=== PATIENT | female | born 1970 | race Caucasian/White ===

== ENCOUNTER 2022-04-06 20:36 | Emergency (ER) | payer BC, SELFPAY ==
--- NOTE | ~2022-04-06 | US_ITS ---
EXAMINATION: US VENOUS ULTRASOUND WITH DOPPLER LOWER EXTREMITY, RIGHT CLINICAL INFORMATION: Right thigh pain and swelling COMPARISON: None TECHNIQUE: Ultrasound of the deep veins is performed from the hip to the calf with compression sonography and color and pulse Doppler assessment. Spectral analysis with color-flow imaging is performed. FINDINGS: There is normal venous compression and respiratory variation and augmented flow. The visualized common femoral vein, superficial femoral vein, profunda femoral vein, popliteal vein, and the trifurcation region shows no evidence of deep venous thrombosis. There is no significant popliteal fossa cyst. Contralateral left common femoral vein appears normal. If the patient's symptoms persist, followup ultrasound in 5 days 7 days might be of value to exclude proximal propagation from a non-visualized calf vein. US/US venous duplex LE RT IMPRESSION: No DVT demonstrated in the right lower extremity.
--- NOTE | ~2022-04-06 | XR_ITS ---
EXAMINATION: XR KNEE, RIGHT CLINICAL INFORMATION: Possible fluid in the COMPARISON: None TECHNIQUE: Four views of the right knee. FINDINGS: Patient is status post right total knee replacement. Hardware appears be intact with no evidence for periprosthetic fracture or loosening. Tiny joint effusion is likely present. No significant prepatellar soft tissue swelling. XR/XR knee RT 3V IMPRESSION: Right total knee replacement. No evidence for periprosthetic fracture or loosening.
[2022-04-06 20:40] VITALS: BP 172/94; PULSE 92; RESP 18; TEMP 36.5; O2SAT 97; BMI 39.5
--- NOTE | 2022-04-06 20:46 | ED.GENADULT ---
HPI - General Adult General Chief complaint: Extremity Injury, Lower <PHILLIP Shah - Last Filed: 04/11/22 16:16> Stated complaint: right knee replacement/ swollen leg <PHILLIP Shah Last Filed: 04/11/22 16:16> Time Seen by Provider: 04/06/22 21:53 <PHILLIP Shah Last Filed: 04/11/22 16:16> Source: patient <PHILLIP Edward - Last Filed: 04/06/22 22:42> Mode of arrival: ambulatory <PHILLIP Edward Last Filed: 04/06/22 22:42> Limitations: no limitations <PHILLIP Edward Last Filed: 04/06/22 22:42> History of Present Illness HPI narrative: This is a 51-year-old female presenting to the emergency department complaints of swelling/discomfort to right lower extremity times a few hours. Patient tells me she recently got a knee replacement to her right knee out of [place], she is worried that there could be something wrong with it, tells me she realized it looked swollen and was bothering her prior to arrival when her pointed out it looked slightly more swollen than usual. . Patient tells me she thinks that her right lower extremity is slightly more swollen than her left, she tells me she wanted to come in to get this evaluated. She does report today physical therapy was tough. She denies any fevers, chills, numbness, tingling, trauma, chest pain, shortness of breath, headache, vision changes, dizziness, history of hypercoagulable disorder, malignancy, long travel, history of DVT or PE, not on blood thinners only baby aspirin. No trauma <PHILLIP Edward - Last Filed: 04/06/22 22:42> Related Data Allergies/adverse reactions: Allergies Allergy/AdvReac Type Severity Reaction Status Date / Time clarithromycin [From BIAXIN] Allergy Unknown DIARRHEA Verified 04/06/22 20:44 oxycodone [From PERCOCET] Allergy Unknown NAUSEA & Verified 04/06/22 20:44 VOMITING Sulfa (Sulfonamide Allergy Unknown Verified 04/06/22 20:44 Antibiotics) <PHILLIP Shah Last Filed: 04/11/22 16:16> Review of Systems Review of Systems: Constitutional : No Weight loss, No Fever, No Chills, No Fatigue, No Malaise ENT/Mouth : No sore throat, No Rhinorrhea Eyes: No Eye Pain, No Swelling, No Redness Cardiovascular : No Chest Pain, No SOB, No Dyspnea on Exertion, No Orthopnea, No Edema, No Palpitations Respiratory : No Cough, No Sputum, No Wheezing Gastrointestinal : No Nausea, No Vomiting, No Diarrhea, No Constipation, No abdominal Pain, No Hematochezia, No Melena Genitourinary : No Dysuria, No Urinary Frequency, No Hematuria, Musculoskeletal : No joint pain, No Myalgias, + Joint Swelling Skin : No Skin Lesions, No rash Neuro : No Weakness, No Numbness, No Dizziness, No Headache Psych : No Anxiety/Panic, No Depression All other systems reviewed and are negative <PHILLIP Edward - Last Filed: 04/06/22 22:42> Yes all other systems are reviewed and are negative <PHILLIP Edward - Last Filed: 04/06/22 22:42> [facility] Past Medical History Attestation statement: The following information was validated with the patient. <PHILLIP Edward - Last Filed: 04/06/22 22:42> Source: old records reviewed and nursing notes reviewed <PHILLIP Edward - Last Filed: 04/06/22 22:42> Social History Social History: Social History Advance Directives: No Advance Directives Information Provided: No <PHILLIP Shah - Last Filed: 04/11/22 16:16> Physical Exam ED Vital Signs: Vital Signs - 24 hr 04/06/22 20:40 Temperature 97.7 F Pulse Rate 92 Respiratory Rate 18 Blood Pressure 172/94 H Pulse Oximetry 97 Oxygen Delivery Method Room Air BMI result Body Mass Index 39.5 <PHILLIP Shah - Last Filed: 04/11/22 16:16> Vital Signs - 24 hr 04/06/22 20:40 Temperature 97.7 F Pulse Rate 92 Respiratory Rate 18 Blood Pressure 172/94 H Pulse Oximetry 97 Oxygen Delivery Method Room Air BMI result Body Mass Index 39.5 vss <PHILLIP Edward - Last Filed: 04/06/22 22:42> Vital Signs - 24 hr 04/06/22 20:40 Temperature 97.7 F Pulse Rate 92 Respiratory Rate 18 Blood Pressure 172/94 H Pulse Oximetry 97 Oxygen Delivery Method Room Air BMI result Body Mass Index 39.5 <Minor Bhatti MD - Last Filed: 04/06/22 23:28> Appearance: Alert.? Oriented X3.? No acute distress.? Head: Normocephalic, atraumatic, no step-offs or deformities Eyes: Pupils equal, round and reactive to light.? CVS: Normal heart rate and rhythm.? Pulses normal.? Respiratory: No respiratory distress.? Breath sounds normal.? Abdomen: Soft and nontender.? Skin: Skin warm and dry.? Normal skin color.? Normal skin turgor.? Extremities: No lower extremity edema.? No calf ttp, negative suly. 5/5 strength to bilateral upper and lower extremities. Full rom to b/l knees without overlying skin changes. No foot drop 2+ DP,PT,AT pulses equal and b.l Back: No midline tenderness, no C-spine tenderness, full range of motion, no CVA tenderness bilaterally Neuro: Oriented X 3.? No motor deficit.? No sensory deficit. CN 2-12 intact <PHILLIP Edward - Last Filed: 04/06/22 22:42> Course Course Course Narrative: RME: 51 yold female presents to the ED for right thigh/knee seeming swollen. patient has knee replacement surgery ten weeks ago. patient states no recent trauma. PHysical exam negative for redness, swelling warmth or tenderness of knee. patient has complete range of motion of right knee. Patient states right thigh seems bigger than left on exam. negative for any thigh tenderness or redness. RIght leg and calf is normal. labs, knee xray and ultrasond ordered. <PHILLIP Shah - Last Filed: 04/11/22 16:16> Reevaluation(s) Reevaluation #1: CBC appears to be within normal limits. Chemistry with no acute electrolyte abnormalities requiring intervention. Xray unremarkable without Ez prosthetic fracture or loosening. Venous duplex of right lower extremity with no signs of DVT. Again history and physical exam not consistent with arterial occlusion. At this time patient will be discharged home advised for her to follow-up with her surgeon, educated her to return for repeat ultrasound if symptoms persist to rule out DVT however at this time unable to visualize DVT and history and physical exam with low suspicion. Educated on worrisome signs and symptoms and when to return. Advised to follow up with surgeon who did operation. <PHILLIP Edward - Last Filed: 04/06/22 22:42> Time: 22:41 <PHILLIP Edward - Last Filed: 04/06/22 22:42> Medical Decision Making Medical Decision Making [facility] Narrative: 2220 51-year-old female presents stating she thinks her right lower extremity is swollen, had a knee replacement done about 10 weeks ago. Denies fevers, chills, numbness, tingling. Has been ambulatory without difficulties. Physical exam unremarkable unlikely threatened limb, septic joint, ligament or tendon tear, no trauma therefore unlikely fracture, dislocations, unlikely osteomyelitis, no signs of joint effusion. Likely normal right lower exremity With postoperative pain. I am unable to appreciate any swelling, unlikely venous or arterial occlusion. Basic labs and ultrasound were ordered from triage will follow x-ray also ordered <PHILLIP Edward - Last Filed: 04/06/22 22:42> Differential Diagnosis Differential Diagnoses: The differential diagnosis associated with the presentation includes <PHILLIP Edward - Last Filed: 04/06/22 22:42> unlikely threatened limb, septic joint, ligament or tendon tear, no trauma therefore unlikely fracture, dislocations, unlikely osteomyelitis, no signs of joint effusion. Likely normal right lower exremity With postoperative pain. I am unable to appreciate any swelling, unlikely venous or arterial occlusion. <PHILLIP Edward - Last Filed: 04/06/22 22:42> Admission/Observation Consideration of admission/observation: Escalation of care including admission/observation considered <PHILLIP Edward - Last Filed: 04/06/22 22:42> unlikely <PHILLIP Edward - Last Filed: 04/06/22 22:42> Lab Data [facility] Lab Attestation statement: I reviewed the patient's lab results. <PHILLIP Edward - Last Filed: 04/06/22 22:42> unremarkable <PHILLIP Edward - Last Filed: 04/06/22 22:42> Result Diagrams: 04/06/22 21:15 04/06/22 21:15 <PHILLIP Shah - Last Filed: 04/11/22 16:16> Labs: Lab Results 04/06/22 04/06/22 04/06/22 Range/Units 21:15 21:15 21:15 WBC 8.3 (4.8-10.8) X10*3/uL RBC 4.95 (4.20-5.50) X10*6/uL Hgb 14.0 (12.0-16.0) g/dl Hct 42.3 (37.0-47.0) % MCV 85.5 (80.0-98.0) fL MCH 28.3 (27.0-33.0) pg MCHC 33.1 (31.0-35.0) g/dl RDW 14.3 (11.0-16.0) % Plt Count 272 (160-400) X10*3/uL MPV 9.8 (9.4-12.3) fL Immature Gran % (Auto) 0.1 (0.0-0.4) % Neut % (Auto) 58.1 (45-73) % Lymph % (Auto) 32.2 (20-40) % [place] % (Auto) 6.9 (2-11) % Eos % (Auto) 2.0 (0-4) % Baso % (Auto) 0.7 (0-2) % Lymph # (Auto) 2.7 (1.2-4.9) X10*3/uL [place] # (Auto) 0.6 (0.1-1.2) X10*3/uL Eos # (Auto) 0.2 (0.0-0.4) X10*3/uL Baso # (Auto) 0.1 (0.0-0.2) X10*3/uL Abs Immat Gran (auto) 0.01 (0.00-0.03) X10*3/uL Absolute Neuts (auto) 4.8 (2.0-8.3) x10*3/uL Absolute Nucleated RBC 0.000 (0.0-0.012) X10*3/uL Nucleated RBC % (auto) 0.0 (0.0-0.2) /100WBC PT 11.5 (10.0-13.1) SEC INR 1.0 (0.9-1.1) APTT 26.9 (26.0-36.4) SEC Sodium 142 (135-145) mmol/L Potassium 3.8 (3.3-5.1) mmol/L Chloride 108 (96-108) mmol/L Carbon Dioxide 26 (22-29) mmol/L Anion Gap 12 (12-20) BUN 17 H (9-16) mg/dL Creatinine 0.89 (0.5-1.4) mg/dL Estim Creat Clear Calc 93.4 Estimated GFR > 60 Random Glucose 109 (60-115) mg/dL Calcium 9.2 (8.4-10.2) mg/dL Total Bilirubin 0.7 (0.0-1.0) mg/dL AST 21 (5-31) U/L ALT 22 (0-31) U/L Alkaline Phosphatase 111 (39-117) U/L Total Protein 6.5 (6.5-8.0) g/dL Albumin 4.0 (3.5-5.0) g/dL <PHILLIP Shah - Last Filed: 04/11/22 16:16> Lab Results 04/06/22 04/06/22 04/06/22 Range/Units 21:15 21:15 21:15 WBC 8.3 (4.8-10.8) X10*3/uL RBC 4.95 (4.20-5.50) X10*6/uL Hgb 14.0 (12.0-16.0) g/dl Hct 42.3 (37.0-47.0) % MCV 85.5 (80.0-98.0) fL MCH 28.3 (27.0-33.0) pg MCHC 33.1 (31.0-35.0) g/dl RDW 14.3 (11.0-16.0) % Plt Count 272 (160-400) X10*3/uL MPV 9.8 (9.4-12.3) fL Immature Gran % (Auto) 0.1 (0.0-0.4) % Neut % (Auto) 58.1 (45-73) % Lymph % (Auto) 32.2 (20-40) % [place] % (Auto) 6.9 (2-11) % Eos % (Auto) 2.0 (0-4) % Baso % (Auto) 0.7 (0-2) % Lymph # (Auto) 2.7 (1.2-4.9) X10*3/uL [place] # (Auto) 0.6 (0.1-1.2) X10*3/uL Eos # (Auto) 0.2 (0.0-0.4) X10*3/uL Baso # (Auto) 0.1 (0.0-0.2) X10*3/uL Abs Immat Gran (auto) 0.01 (0.00-0.03) X10*3/uL Absolute Neuts (auto) 4.8 (2.0-8.3) x10*3/uL Absolute Nucleated RBC 0.000 (0.0-0.012) X10*3/uL Nucleated RBC % (auto) 0.0 (0.0-0.2) /100WBC PT 11.5 (10.0-13.1) SEC INR 1.0 (0.9-1.1) APTT 26.9 (26.0-36.4) SEC Sodium 142 (135-145) mmol/L Potassium 3.8 (3.3-5.1) mmol/L Chloride 108 (96-108) mmol/L Carbon Dioxide 26 (22-29) mmol/L Anion Gap 12 (12-20) BUN 17 H (9-16) mg/dL Creatinine 0.89 (0.5-1.4) mg/dL Estim Creat Clear Calc 93.4 Estimated GFR > 60 Random Glucose 109 (60-115) mg/dL Calcium 9.2 (8.4-10.2) mg/dL Total Bilirubin 0.7 (0.0-1.0) mg/dL AST 21 (5-31) U/L ALT 22 (0-31) U/L Alkaline Phosphatase 111 (39-117) U/L Total Protein 6.5 (6.5-8.0) g/dL Albumin 4.0 (3.5-5.0) g/dL <PHILLIP Edward - Last Filed: 04/06/22 22:42> Lab Results 04/06/22 04/06/22 04/06/22 Range/Units 21:15 21:15 21:15 WBC 8.3 (4.8-10.8) X10*3/uL RBC 4.95 (4.20-5.50) X10*6/uL Hgb 14.0 (12.0-16.0) g/dl Hct 42.3 (37.0-47.0) % MCV 85.5 (80.0-98.0) fL MCH 28.3 (27.0-33.0) pg MCHC 33.1 (31.0-35.0) g/dl RDW 14.3 (11.0-16.0) % Plt Count 272 (160-400) X10*3/uL MPV 9.8 (9.4-12.3) fL Immature Gran % (Auto) 0.1 (0.0-0.4) % Neut % (Auto) 58.1 (45-73) % Lymph % (Auto) 32.2 (20-40) % [place] % (Auto) 6.9 (2-11) % Eos % (Auto) 2.0 (0-4) % Baso % (Auto) 0.7 (0-2) % Lymph # (Auto) 2.7 (1.2-4.9) X10*3/uL [place] # (Auto) 0.6 (0.1-1.2) X10*3/uL Eos # (Auto) 0.2 (0.0-0.4) X10*3/uL Baso # (Auto) 0.1 (0.0-0.2) X10*3/uL Abs Immat Gran (auto) 0.01 (0.00-0.03) X10*3/uL Absolute Neuts (auto) 4.8 (2.0-8.3) x10*3/uL Absolute Nucleated RBC 0.000 (0.0-0.012) X10*3/uL Nucleated RBC % (auto) 0.0 (0.0-0.2) /100WBC PT 11.5 (10.0-13.1) SEC INR 1.0 (0.9-1.1) APTT 26.9 (26.0-36.4) SEC Sodium 142 (135-145) mmol/L Potassium 3.8 (3.3-5.1) mmol/L Chloride 108 (96-108) mmol/L Carbon Dioxide 26 (22-29) mmol/L Anion Gap 12 (12-20) BUN 17 H (9-16) mg/dL Creatinine 0.89 (0.5-1.4) mg/dL Estim Creat Clear Calc 93.4 Estimated GFR > 60 Random Glucose 109 (60-115) mg/dL Calcium 9.2 (8.4-10.2) mg/dL Total Bilirubin 0.7 (0.0-1.0) mg/dL AST 21 (5-31) U/L ALT 22 (0-31) U/L Alkaline Phosphatase 111 (39-117) U/L Total Protein 6.5 (6.5-8.0) g/dL Albumin 4.0 (3.5-5.0) g/dL <Minor Bhatti MD - Last Filed: 04/06/22 23:28> Independent Interpretation I performed an independent interpretation of an: Plain X-Ray ( unremarkable right knee status post total right knee) and Ultrasound ( no DVT) <PHILLIP Edward - Last Filed: 04/06/22 22:42> Radiology Impression Discussion of test interpretation with radiology: I have reviewed the radiologist's reading. <PHILLIP Edward - Last Filed: 04/06/22 22:42> Core Measures AMI core measures followed: Yes <PHILLIP Edward - Last Filed: 04/06/22 22:42> Measure exclusions: not indicated <PHILLIP Edward - Last Filed: 04/06/22 22:42> Attestation Attending Attestation: I reviewed [employer]/PA/Resident note, assessment and plan. I agree with the documentation, assessment and plan unless otherwise stated. <Minor Bhatti MD - Last Filed: 04/06/22 23:28> Critical Care Time Critical Care Time Critical Care Time: No <PHILLIP Edward - Last Filed: 04/06/22 22:42> Discharge Plan Discharge Clinical Impression: Lower extremity pain <PHILLIP Shah Last Filed: 04/11/22 16:16> Patient Disposition: Home, Self-Care <PHILLIP Shah Last Filed: 04/11/22 16:16> Additional Instructions: Take your medications as prescribed. If you were prescribed antibiotics today, it is important that you take your medication to their entirety, do not skip any doses, do not finish them early. Follow-up with your primary care provider this week. Please follow-up with your orthopedic surgeon who performed surgery on you within the next day or two. Return to the emergency department with new or worsening symptoms. Such as fevers, chills, chest pain, shortness of breath, nausea, vomiting, dizziness, headache, vision changes, lethargy In case of emergency call 911 FINDINGS: There is normal venous compression and respiratory variation and augmented flow. The visualized common femoral vein, superficial femoral vein, profunda femoral vein, popliteal vein, and the trifurcation region shows no evidence of deep venous thrombosis. ? There is no significant popliteal fossa cyst. Contralateral left common femoral vein appears normal. If the patient's symptoms persist, followup ultrasound in 5 days 7 days might be of value to exclude proximal propagation from a non-visualized calf vein. US/US venous duplex LE RT IMPRESSION: No DVT demonstrated in the right lower extremity XR/XR knee RT 3V IMPRESSION: Right total knee replacement. No evidence for periprosthetic fracture or loosening. ? <PHILLIP Shah - Last Filed: 04/11/22 16:16> Referrals: Junaid Hutton MD [Primary Care Provider] - 2 days <PHILLIP Shah - Last Filed: 04/11/22 16:16> Stand Alone Forms: Work/School Release <PHILLIP Shah - Last Filed: 04/11/22 16:16> Discharge Date/Time: 04/06/22 23:11 <PHILLIP Shah - Last Filed: 04/11/22 16:16>
[2022-04-06 21:19] LABS: MANUAL DIFF FLAG NO
[2022-04-06 21:20] LABS: Basophils Absolute Auto 0.1 X10*3/uL (0.0-0.2); Basophils Percent Auto 0.7 % (0-2); Eosinophils Absolute Auto 0.2 X10*3/uL (0.0-0.4); Hematocrit 42.3 % (37.0-47.0); Imm Gran Abs Auto 0.01 X10*3/uL (0.00-0.03); Imm Gran Pct Auto 0.1 % (0.0-0.4); Lymphocytes Absolute Auto 2.7 X10*3/uL (1.2-4.9); Lymphocytes Percent Auto 32.2 % (20-40); Mean Corpuscular HGB Conc 33.1 g/dl (31.0-35.0); Mean Corpuscular Hemoglobin 28.3 pg (27.0-33.0); Mean Corpuscular Volume 85.5 fL (80.0-98.0); Mean Platelet Volume 9.8 fL (9.4-12.3); Monocytes Absolute Auto 0.6 X10*3/uL (0.1-1.2); Monocytes Percent Auto 6.9 % (2-11); Neutrophils Absolute Auto 4.8 x10*3/uL (2.0-8.3); Neutrophils Percent Auto 58.1 % (45-73); Platelet Count 272 X10*3/uL (160-400); Red Blood Count 4.95 X10*6/uL (4.20-5.50); Red Cell Distribution Width 14.3 % (11.0-16.0); White Blood Count 8.3 X10*3/uL (4.8-10.8)
[2022-04-06 21:28] LABS: Prothrombin Time 11.5 SEC (10.0-13.1)
[2022-04-06 21:31] LABS: Partial Thromboplastin Time 26.9 SEC (26.0-36.4)
[2022-04-06 21:32] LABS: Alanine Aminotransferase 22 U/L (0-31); Alkaline Phosphatase 111 U/L (39-117); Anion Gap 12 (12-20); Aspartate Amino Transferase 21 U/L (5-31); Bilirubin Total 0.7 mg/dL (0.0-1.0); Blood Urea Nitrogen 17 mg/dL (9-16); Calcium 9.2 mg/dL (8.4-10.2); Carbon Dioxide 26 mmol/L (22-29); Chloride 108 mmol/L (96-108); Creatinine Clr Calc Pharmacy 93.4; Estimated Glomerular Filt Rate > 60; Glucose Random 109 mg/dL (60-115); Potassium 3.8 mmol/L (3.3-5.1); Sodium 142 mmol/L (135-145); Total Protein 6.5 g/dL (6.5-8.0)
== END 2022-04-06 23:11 | disposition home or self-care (01) ==
PROVIDERS: Physician Assistant; Emergency Provider Emergency Medicine; PCP Internal Medicine
DX: M79.661 Pain in right lower leg (principal); Z96.651 Presence of right artificial knee joint
CPT/HCPCS: 36415; 73562; 80053; 85025; 85610; 85730; 93971; 99281; 99284

== ENCOUNTER 2023-06-15 08:50 | Outpatient (AMB) | payer BC, SELFPAY ==
[2023-06-15 08:52] VITALS: BP 140/90; BMI 43.3
--- NOTE | 2023-06-15 08:52 | A.OFFPC_ITS ---
Vital Signs 06/15/23 08:52 06/15/23 09:38 Height 5 ft 6 in Weight 268 lb BMI 43.3 BP 140/90 H 140/90 H Blood Pressure Location Lt brachial Lt brachial Position Sitting Sitting Intake Visit Reasons: New patient-req physical Intake Note: New patient, physical request College Admissions Counselor Required: No Accompanied by: Self / Same As Patient Allergies clarithromycin [From BIAXIN] Allergy (Unknown, Verified 06/15/23 09:08) DIARRHEA oxycodone [From PERCOCET] Allergy (Unknown, Verified 06/15/23 09:08) NAUSEA & VOMITING Sulfa (Sulfonamide Antibiotics) Allergy (Verified 06/15/23 09:08) Unknown Medication List - Last Reconciled 06/15/23 by Yolanda Serna MD aspirin 325 mg PO DAILY atorvastatin 40 mg PO DAILY clonazepam 0.5 mg PO BEDTIME escitalopram oxalate 10 mg PO BEDTIME pantoprazole 40 mg PO BID triamterene-hydrochlorothiazid 37.5-25 mg (Maxzide-25mg) 1 tab PO QAM PRN Tobacco use date assessed: 06/15/23 Dental Screening Dental Screen Date: 06/15/23 Did you have a dental visit in the last 12 months?: Yes Did you have a dental problem in the last 6 months where you did not have access to dental care?: No Was dental information given to patient?: Patient has dentist HPI HPI Comments History of Present Illness Details This is a 53-year-old female with morbid obesity that comes for her physical exam as new patient. She does have elevated blood pressure measurements and I advised her to restart triamterene-hydrochlorothiazide. Last mammogram was 2022 and was normal as per patient. She follows with [facility] and said that last Pap smear was 2022 and was normal. Last colonoscopy was 2020 and was normal as well as endoscopy showing mild GERD. She is morbidly obese and will follow with weight management at [facility] with Dr. Mitali Vargas. She had a cerebrovascular accident in 2018 with no residual deficit and had a stent placed in the brain at [facility] interventional radiology. She follows with [facility] every 3 years. This is why she takes aspirin 325 mg once a day. Denies any chest pain or shortness of breath. [facility] Medical History (Updated 06/15/23 @ 09:36 by Yolanda Serna MD) Normal esophagogastroduodenoscopy (EGD) Surgical History (Updated 06/15/23 @ 09:36 by Yolanda Serna MD) Hx of colonoscopy H/O brain surgery History of cholecystectomy History of back surgery History of arthroplasty of left knee History of surgery History of total right knee replacement Family History Mother Hypertension Hypercholesteremia Substance use disorder Father Hypertension H/O gastroesophageal reflux (GERD) Alzheimer disease Mental health disorder Social History Housing: House Alcohol intake: current Alcohol intake frequency: a few times a week Alcohol type: hard liquor Patient Tobacco Use Status: Never used Tobacco e-Cigarette/Vaping Use: Never Used Second Hand Smoke Exposure: No service: No Current occupational status: employed Current occupational exposures/hazards: No Cognitive needs: No Hearing needs: No Vision needs: Yes Questionnaire PHQ-9 Over the last 2 weeks, how often have you been bothered by any of the following problems? 1. Little interest or pleasure in doing things: not at all 2. Feeling down, depressed, or hopeless: not at all 3. Trouble falling or staying asleep, or sleeping too much: not at all 4. Feeling tired or having little energy: not at all 5. Poor appetite or overeating: not at all 6. Feeling bad about yourself - or that you are a failure or have let yourself or your family down: not at all 7. Trouble concentrating on things, such as reading the newspaper or watching television: not at all 8. Moving or speaking so slowly that other people could have noticed. Or the opposite - being so fidgety or restless that you have been moving around a lot more than usual: not at all 9. Thoughts that you would be better off or of hurting yourself in some way: not at all Total score: 0 Depression Screening Interpretation: Negative Depression Screening Done: Yes 95630 - PHQ-9 Billing: Yes Source: Developed by Drs. Shekhar Chung, Marlena Moreno, Kirk Valdes and colleagues, with an educational katie from [employer] Thrive Questionnaire Currently or been in a relationship where the following occur: no concerns reported THRIVE Score: 0 AUDIT C Alcohol Use Questionnaire (AUDIT-C) 1. How often do you have a drink containing alcohol?: 2-3 times a week 2. How many drinks containing alcohol do you have on a typical day when you are drinking?: 1 or 2 3. How often do you have six or more drinks on one occasion?: Never Total Score: 3 YONY-7 AMB Questionnaire YONY-7 Date YONY - 7 assessed: 06/15/23 Feeling nervous, anxious, or on edge: 1 = Several days Not being able to stop or control worryin = Not at all Worrying too much about different things: 1 = Several days Trouble relaxin = Nearly every day Being so restless that it is hard to sit still: 0 = Not at all Becoming easily annoyed or irritable: 1 = Several days Feeling afraid as if something awful might happen: 1 = Several days Total YONY-7 score (0-4 normal; 5-9 mild; 10-14 moderate; 15-21 severe): 7 Source: Developed by Drs. Shekhar Chung, Marlena Moreno, Kirk Valdes and colleagues, with an educational katie from [employer]. YONY-7 Assessment Billing YONY-7 Assessment Tool: YONY-7 Assessment 29638 Review of Systems Const All systems reviewed & are unremarkable except as noted in HPI and below Eyes Reports no additional complaints, Denies change in vision and Denies other visual disturbances Card Denies chest pain at rest, Denies chest pain with activity, Denies edema, Denies irregular heart rhythm, Denies claudication, Denies dyspnea, Denies dyspnea on exertion, Denies orthopnea, Denies paroxysmal nocturnal dyspnea and Denies slow heart rate Resp Denies cough, Denies dyspnea and Denies dyspnea on exertion GI Denies abdominal pain, Denies change in bowel habits, Denies excessive flatus, Denies nausea and Denies vomiting Physical exam (Primary Care) Vital Signs: Last Vital Signs BP 140/90 H 06/15/23 09:38 Care Plan Goal for BP management: Restart triamterene-hydrochlorothiazide. BMI result Body Mass Index 43.3 BMI Assessment/Plan discussion: High (She will start going to weight management at [facility]) BMI High, discussed plan: lifestyle, weight reduction, dietary, physical activity and alcohol moderation Tobacco/Smoking Status: Tobacco use Status Tobacco use date assessed 06/15/23 06/15/23 09:03 Patient Tobacco Use Status Never used Tobacco 06/15/23 09:03 e-Cigarette/Vaping Use Never Used 06/15/23 09:03 PHQ-9: PHQ-9 Score PHQ-9: Total score 0 06/15/23 09:10 Depression Screening Interpretation: Negative Currently or been in a relationship where the following occur: no concerns reported Const General: cooperative Orientation/consciousness: patient oriented x3 HENMT Head: Yes normal to inspection, Yes normocephalic and Yes atraumatic Ears: external ears normal Eyes General: appearance normal, both eyes and all related structures Eyelids: Yes eyelids normal Conjunctivae: conjunctivae normal Neck Neck: Yes normal visual inspection and Yes supple Resp Effort & Inspection: normal respiratory effort Auscultation: clear to auscultation bilaterally Cardio Jugular venous distension: no JVD Rate: regular rate Rhythm: regular rhythm Heart sounds: S1 normal heart sound present and S2 normal heart sound present GI Inspection: Yes normal to inspection Palpation (GI): Soft to palpation and nontender Auscultation: normal bowel sounds Skin General skin exam: no rashes or lesions noted Neuro General: patient oriented x3 and no focal motor deficits Extrem General: Yes full ROM Psych Appearance: grossly normal Assessment and Plan Assessment & Plan (1) Physical exam: Code(s): Z00.00 - Encounter for general adult medical examination without abnormal findings Plan: Repeat in a year. (2) CVA (cerebral vascular accident): Comment: 2018 [facility] neurointerventional radiology Code(s): I63.9 - Cerebral infarction, unspecified Plan: Continue aspirin 325 mg once a day. Follow-up with [facility] Neurointerventional Radiology every 3 years. (3) Morbid obesity: Code(s): E66.01 - Morbid (severe) obesity due to excess calories Plan: Follow-up with weight management at [facility]. BMI goal is less than 30. Orders: Orders Lipid Panel Today E78.5 - Hyperlipidemia, unspecified, Z00.00 - Encounter for general adult medical examination without abnormal findings [facility] [place]. Panel Fast Today Z00.00 - Encounter for general adult medical examination without abnormal findings Coding Level of Care Code New Pt Prev Care 40-64y(51677) Diagnoses Physical exam Z00.00 CVA (cerebral vascular accident) I63.9 Morbid obesity E66.01 Additional Codes YONY-7 Assessment Billing - YONY-7 Assessment Tool: YONY-7 Assessment 63046 ([id number]) Time Spent (min) 35
[2023-06-15 09:38] VITALS: BP 140/90
== END 2023-06-15 09:40 | disposition home or self-care (01) ==
PROVIDERS: PCP Internal Medicine; Visit Provider Internal Medicine
DX: Z00.00 Encounter for general adult medical examination without abnormal findings (principal); Z86.73 Personal history of transient ischemic attack (TIA), and cerebral infarction without residual deficits; E66.01 Morbid (severe) obesity due to excess calories; Z68.41 Body mass index [BMI] 40.0-44.9, adult
CPT/HCPCS: 99386

== ENCOUNTER 2023-12-25 11:19 | Outpatient (REF) | payer BC, SELFPAY ==
--- NOTE | ~2023-12-25 | US_ITS ---
EXAMINATION: US TRIPLEX LOWER EXTREMITY, LEFT CLINICAL INFORMATION: Left lower extremity swelling, pain, status post knee replacement one week ago COMPARISON: None available. TECHNIQUE: Color-flow triplex imaging with spectral analysis and compression Doppler were performed on the left lower extremity. FINDINGS: Respiratory variation, normal compression and augmented flow are noted throughout the left lower extremity. The visualized common femoral vein, superficial femoral vein, profunda femoral vein, popliteal vein and posterior tibial venous segments show no evidence of deep venous thrombosis.. Peroneal vein was not visualized on this study. There is no Rojas's cyst. Soft tissue swelling of the calf. US/US venous duplex LE IMPRESSION: 1. No evidence of deep venous thrombosis involving the left lower extremity. Peroneal vein not visualized. 2. Soft tissue swelling of the calf. Electronically signed by: Ladarius Pantoja DO 12/25/2023 02:10 PM EDT
== END 2023-12-25 11:20 | disposition home or self-care (01) ==
LOC: HO.US 11:19
PROVIDERS: PCP Internal Medicine; Visit Provider Nurse Practitioner Primary Care
DX: M79.605 Pain in left leg (principal)
CPT/HCPCS: 93971

== ENCOUNTER 2024-02-08 11:04 | Outpatient (REF) | payer BC, SELFPAY ==
[2024-02-08 14:35] LABS: Alanine Aminotransferase 25 U/L (0-31); Albumin Level 3.9 g/dL (3.5-5.0); Alkaline Phosphatase 91 U/L (39-117); Anion Gap 12 (12-20); Aspartate Amino Transferase 25 U/L (5-31); Bilirubin Total 0.5 mg/dL (0.0-1.0); Blood Urea Nitrogen 15 mg/dL (9-16); Carbon Dioxide 29 mmol/L (22-29); Chloride 108 mmol/L (96-108); Cholesterol 131 mg/dL (<200); Estimated Glomerular Filt Rate > 60; Glucose Fasting 110 mg/dL (60-99); HDL Cholesterol 55 mg/dL (>40); LDL Cholesterol Calculated 51 mg/dL (<100); Sodium 145 mmol/L (135-145); Total Protein 6.8 g/dL (6.5-8.0); Triglycerides 126 mg/dL (<150)
== END 2024-02-08 11:05 | disposition home or self-care (01) ==
LOC: HO.WFDLDS 11:04
PROVIDERS: Visit Provider Internal Medicine
DX: Z00.00 Encounter for general adult medical examination without abnormal findings (principal); E78.5 Hyperlipidemia, unspecified
CPT/HCPCS: 36415; 80053; 80061

== ENCOUNTER 2024-03-03 14:20 | Outpatient (AMB) | payer OTHER, SELFPAY ==
--- NOTE | 2024-03-03 14:21 | A.OFFPC_ITS ---
Vital Signs 03/03/24 14:22 Height 5 ft 6 in Weight 270 lb 2 oz BMI 43.6 BP 142/96 H Blood Pressure Location Lt brachial Position Sitting Pulse 72 Pulse Source Pulse Oximeter Pulse Oximetry (%) 100 Oxygen Delivery Method Room Air Intake Visit Reasons: BP Phone Circuit Operator Required: No Accompanied by: Self / Same As Patient Allergies clarithromycin [From BIAXIN] Allergy (Unknown, Verified 03/03/24 14:44) DIARRHEA oxycodone [From PERCOCET] Allergy (Unknown, Verified 03/03/24 14:44) NAUSEA & VOMITING Sulfa (Sulfonamide Antibiotics) Allergy (Verified 03/03/24 14:44) Unknown Medication List - Last Reconciled 03/03/24 by Yolanda Serna MD aspirin 325 mg PO DAILY atorvastatin 40 mg PO DAILY clonazepam 0.5 mg PO BEDTIME 30 days escitalopram oxalate 10 mg PO BEDTIME pantoprazole 40 mg PO BID triamterene-hydrochlorothiazid 37.5-25 mg (Maxzide-25mg) 1 tab PO QAM PRN Tobacco use date assessed: 03/03/24 Dental Screening Dental Screen Date: 03/03/24 Did you have a dental visit in the last 12 months?: Yes Did you have a dental problem in the last 6 months where you did not have access to dental care?: No Was dental information given to patient?: Patient has dentist HPI HPI Comments History of Present Illness Details The patient is a 53-year-old female presenting with hypertension and morbid obesity. She has a history of hypertension that managed with triamterine hydrochlorothiazide but was temporarily discontinued after a knee replacement surgery in November. The patient's blood pressure was stable postoperatively but has exhibited elevation recently, prompting a reconsideration of her antihypertensive regimen. The patient reports adherence to atorvastatin for hyperlipidemia management and occasional use of clonazepam and escitalopram for anxiety, with noted insomnia potentially aggravated by menopausal symptoms. Her weight history is significant for morbid obesity with a BMI of 43.6. She has attempted non-surgical weight management in the past, including Weight Watchers and intermittent fasting, with limited long-term success. Discussions regarding pharmacotherapy for weight reduction, including the administration of weekly injectables, reveal concerns about potential side effects. There is a preceding history of pre-diabetes with a fasting glucose level of 110 mg/dL, noted in a blood test conducted in January, without follow-up of an HbA1c due to insurance coverage issues. Despite attempts at lifestyle modification, weight management challenges persist, thus complicating her cardiovascular risk profile. [facility] Medical History (Updated 03/03/24 @ 20:42 by Yolanda Serna MD) Normal esophagogastroduodenoscopy (EGD) Surgical History Hx of colonoscopy H/O brain surgery History of cholecystectomy History of back surgery History of arthroplasty of left knee History of surgery History of total right knee replacement Family History Mother Hypertension Hypercholesteremia Substance use disorder Father Hypertension H/O gastroesophageal reflux (GERD) Alzheimer disease Mental health disorder Social History Housing: House Alcohol intake: current Alcohol intake frequency: a few times a week Alcohol type: hard liquor Patient Tobacco Use Status: Never used Tobacco e-Cigarette/Vaping Use: Never Used Second Hand Smoke Exposure: No service: No Current occupational status: employed Current occupational exposures/hazards: No Cognitive needs: No Hearing needs: No Vision needs: Yes Questionnaire PHQ-9 Over the last 2 weeks, how often have you been bothered by any of the following problems? 1. Little interest or pleasure in doing things: not at all 2. Feeling down, depressed, or hopeless: not at all 3. Trouble falling or staying asleep, or sleeping too much: not at all 4. Feeling tired or having little energy: not at all 5. Poor appetite or overeating: not at all 6. Feeling bad about yourself - or that you are a failure or have let yourself or your family down: not at all 7. Trouble concentrating on things, such as reading the newspaper or watching television: not at all 8. Moving or speaking so slowly that other people could have noticed. Or the opposite - being so fidgety or restless that you have been moving around a lot more than usual: not at all 9. Thoughts that you would be better off or of hurting yourself in some way: not at all Total score: 0 Depression Screening Interpretation: Negative Depression Screening Done: Yes 80934 - PHQ-9 Billing: Yes Source: Developed by Drs. Shekhar Chung, Marlena Moreno, Kirk Valdes and colleagues, with an educational katie from [employer]. Thrive Questionnaire Date Thrive assessed: 03/03/24 I am a: Patient What is your living situation today?: I have a steady place to live Within the past 12 months, did the food you bought not last and you didn't have the money to get more?: Never true Within the past 12 months, did you worry whether your food would run out before you got money to buy more?: Never true Do you have trouble paying for medicines?: No Do you have trouble getting transportation to medical appointments?: No Do you have trouble paying your heating and electricity bill?: No Do you have trouble taking care of your child, family member or friend?: No Do you have trouble with day-to-day activities such as bathing, preparing meals, shopping, managing finances, etc.?: No Are you currently unemployed and looking for a job?: No Are you interested in more education?: No Please select the resources that you would like help with: None Currently or been in a relationship where the following occur: No concerns reported THRIVE Score: 0 AUDIT C Alcohol Use Questionnaire (AUDIT-C) 1. How often do you have a drink containing alcohol?: Monthly or less 2. How many drinks containing alcohol do you have on a typical day when you are drinking?: 1 or 2 3. How often do you have six or more drinks on one occasion?: Never Total Score: 1 Score Reviewed/Action Taken: No YONY-7 AMB Questionnaire YONY-7 Date YONY - 7 assessed: 03/03/24 Feeling nervous, anxious, or on edge: 3 = Nearly every day Not being able to stop or control worryin = Nearly every day Worrying too much about different things: 3 = Nearly every day Trouble relaxin = Nearly every day Being so restless that it is hard to sit still: 1 = Several days Becoming easily annoyed or irritable: 2 = More than half the days Feeling afraid as if something awful might happen: 3 = Nearly every day Total YONY-7 score (0-4 normal; 5-9 mild; 10-14 moderate; 15-21 severe): 18 Source: Developed by Drs. Shekhar Chung, Marlena Moreno, Kirk Valdes and colleagues, with an educational katie from [employer]. YONY-7 Assessment Billing YONY-7 Assessment Tool: YONY-7 Assessment 12521 Review of Systems Const Details: - General: Reports anxiety without depression. - Gastrointestinal: Reports heartburn, possibly exacerbated by alcohol. - Endocrine: Denies diabetes. - Neurological: Denies current neurological symptoms. - Psychological: Reports insomnia, possibly related to menopause. Physical exam (Primary Care) Vital Signs: Last Vital Signs Pulse 72 03/03/24 14:22 BP 142/96 H 03/03/24 14:22 Pulse Ox 100 03/03/24 14:22 Oxygen Delivery Method Room Air 03/03/24 14:22 BMI result Body Mass Index 43.6 BMI Assessment/Plan discussion: High BMI High, discussed plan: lifestyle, weight reduction, dietary and physical activity Tobacco/Smoking Status: Tobacco use Status Tobacco use date assessed 03/03/24 03/03/24 14:27 Patient Tobacco Use Status Never used Tobacco 03/03/24 14:21 e-Cigarette/Vaping Use Never Used 03/03/24 14:21 PHQ-9: PHQ-9 Score PHQ-9: Total score 0 03/03/24 14:46 Depression Screening Interpretation: Negative Thrive Assessment: Date of Thrive Assessment Date Thrive assessed 03/03/24 03/03/24 14:27 Currently or been in a relationship where the following occur: No concerns reported Const Other: General: No confusion Respiratory: Normal respiratory effort, clear to auscultation bilaterally Cardiovascular: No jugular venous distension, regular rate, regular rhythm, S1 normal heart sound present and S2 normal heart sound present GI: Normal to inspection, Soft to palpation and nontender, normal bowel sounds Skin: No rashes or lesions noted Neurology: Patient oriented x3, no focal motor deficits and No confusion Extremities: Full ROM Psychology: Grossly normal Coding Level of Care Code Est Pt Level 4 (46679) Complex EM visit Add On G2211 Diagnoses Essential hypertension I10 Morbid obesity E66.01 CVA (cerebral vascular accident) I63.9 Pure hypercholesterolemia E78.00 Impaired glucose tolerance R73.02 Additional Codes YONY-7 Assessment Billing - YONY-7 Assessment Tool: YONY-7 Assessment 02396 ([id number]) PHQ-9 - 82600 - PHQ-9 Billing: Yes ([id number]) Time Spent (min) 25 Assessment & Plan Assessment & Plan (1) Essential hypertension: Code(s): I10 - Essential (primary) hypertension Category: Medical (2) Morbid obesity: Code(s): E66.01 - Morbid (severe) obesity due to excess calories Category: Medical (3) CVA (cerebral vascular accident): Comment: 2018 [facility] neurointerventional radiology Code(s): I63.9 - Cerebral infarction, unspecified Category: Medical (4) Pure hypercholesterolemia: Code(s): E78.00 - Pure hypercholesterolemia, unspecified Category: Medical (5) Impaired glucose tolerance: Code(s): R73.02 - Impaired glucose tolerance (oral) Category: Medical Plan - Continue monitoring and manage hypertension; resume triamterine hydrochlorothiazide therapy. - Explore pharmacotherapy options for weight management, considering the potential benefits and side effects of weekly injectables. - Continue atorvastatin for hyperlipidemia. - Adjust lifestyle modifications to address pre-diabetes, including dietary changes and increased physical activity. - Address insomnia potentially related to anxiety or menopause; consider continuation of current medication regimen. Patient was informed and verbally consented to the use of an ambient scribe for clinic note documentation during this visit. I discussed with the patient the importance of managing her hypertension and weight to reduce cardiovascular risk. We reviewed pharmacological options for weight management, emphasizing the utility, potential side effects, and insurance barriers for access to injectable medications. Discussions included the benefits and risks of increased physical activity post knee replacement and the necessity of monitoring her glucose levels and lipid profile. The patient was advised on lifestyle changes that could reduce her risk of progression to diabetes and improve her general health outcome. Furthermore, we covered the significance of controlling anxiety and insomnia, particularly with her menopausal symptoms in mind. The necessity of follow-up and continued monitoring of her health metrics was communicated, and appointments were scheduled to track her progress with the weight management program. Medications: New tirzepatide (weight loss) (Zepbound) for 4 weeks 2.5 mg (0.5 mL) subcut QWEEK 2 mL 0RF 4 weeks E66.01 - Morbid (severe) obesity due to excess calories, I10 - Essential (primary) hypertension, I63.9 - Cerebral infarction, unspecified Changed From triamterene-hydrochlorothiazid 37.5-25 mg (Maxzide-25mg) 1 tab PO QAM PRN To triamterene-hydrochlorothiazid 37.5-25 mg 1 tab PO QAM 30 tabs 1RF 30 days Refilled clonazepam 0.5 mg PO BEDTIME 30 tabs 0RF 30 days E66.01 - Morbid (severe) obesity due to excess calories Patient Instructions: - Resume prescribed antihypertensive medication. - Consider discussed pharmacotherapy for weight loss and report any side effects if started. - Monitor blood glucose levels and continue lifestyle modifications for weight management. - Continue consultation with bariatric specialists as per insurance permissions. - Maintain current hypolipidemic therapy and follow up with lipids re-evaluation as advised. - Increase physical activity within comfortable limits post-surgery. - Follow up on any worsening symptoms related to anxiety or insomnia and report any changes.
[2024-03-03 14:22] VITALS: BP 142/96; PULSE 72; O2SAT 100; BMI 43.6
== END 2024-03-03 15:04 | disposition home or self-care (01) ==
PROVIDERS: PCP Internal Medicine; Visit Provider Internal Medicine
DX: I10 Essential (primary) hypertension (principal); E66.01 Morbid (severe) obesity due to excess calories; Z68.41 Body mass index [BMI] 40.0-44.9, adult; Z86.73 Personal history of transient ischemic attack (TIA), and cerebral infarction without residual deficits; E78.00 Pure hypercholesterolemia, unspecified; R73.02 Impaired glucose tolerance (oral)

== ENCOUNTER → 2024-03-03 14:20 | Outpatient (BNVA) | payer OTHER, SELFPAY | PROVIDERS: PCP Internal Medicine; Visit Provider Internal Medicine | DX: I10 Essential (primary) hypertension (principal); E78.00 Pure hypercholesterolemia, unspecified; R73.02 Impaired glucose tolerance (oral); E66.01 Morbid (severe) obesity due to excess calories; Z68.41 Body mass index [BMI] 40.0-44.9, adult; Z86.73 Personal history of transient ischemic attack (TIA), and cerebral infarction without residual deficits | CPT/HCPCS: 96127 ==

== ENCOUNTER 2024-06-15 08:25 | Outpatient (AMB) | payer OTHER, SELFPAY ==
--- NOTE | 2024-06-15 08:30 | A.OFFPC_ITS ---
Vital Signs 06/15/24 08:31 Height 5 ft 6 in Weight 248 lb BMI 40.0 BP 124/82 Blood Pressure Location Lt brachial Position Sitting Intake Visit Reasons: annual Exam Intake Note: Patient here for an annual physical exam Street Light Cleaner Required: No Accompanied by: Self / Same As Patient Allergies clarithromycin [From BIAXIN] Allergy (Unknown, Verified 06/15/24 08:50) DIARRHEA oxycodone [From PERCOCET] Allergy (Unknown, Verified 06/15/24 08:50) NAUSEA & VOMITING Sulfa (Sulfonamide Antibiotics) Allergy (Verified 06/15/24 08:50) Unknown cephalexin Adverse Reaction (Severe, Verified 06/15/24 08:50) abdominal discomfort Medication List - Last Reconciled 06/15/24 by Yolanda Serna MD aspirin 325 mg PO DAILY atorvastatin 40 mg PO DAILY clonazepam 0.5 mg PO BEDTIME 30 days escitalopram oxalate 10 mg PO BEDTIME pantoprazole 40 mg PO BID tirzepatide (weight loss) (Zepbound) 2.5 mg (0.5 mL) subcut QWEEK 4 weeks triamterene-hydrochlorothiazid 37.5-25 mg 1 tab PO QAM 30 days Tobacco use date assessed: 03/03/24 Dental Screening Dental Screen Date: 03/03/24 HPI HPI Comments History of Present Illness Details The patient is a 54-year-old female presenting for her annual physical examination. Her anxiety disorder remains persistent, with treatment complications due to medication side effects and family history concerns. Despite prior administrations like bupropion and current management with escitalopram and clonazepam, symptoms of anxiety continue. She has a history of obesity, with recent lifestyle modifications such as Weight Watchers leading to a 25-pound weight reduction. Her weight loss has currently plateaued, showing frustration regarding continuous efforts. She refrains from tirzepatide use due to possible side effects and adverse reactions observed by acquaintances. Having experienced a stroke in 2017 without deficits, she adheres to treatment plans for her hyperlipidemia, including atorvastatin use. Her health maintenance includes regular stroke recovery evaluations, with procedures scheduled at [facility]. Along with her cardiovascular concerns, she manages gastroesophageal reflux disease with pantoprazole. Her surgical history includes cholecystectomy, back surgery, and bilateral knee arthroplasties, with her most recent surgery occurring on her left knee in November 2022. - Routine monitoring of cardiovascular h ealth due to history of stroke. - Maintain atorvastatin and ASA 325mg re gimen to manage hyperlipidemia and stroke risks. - Regular evaluation of hypertension man agement with triamterene- hydrochlorothiazide. - Weight management strategies, includin g dietary guidance to reduce calorie intake. - Scheduled procedure at [facility] for strok e follow-up examination. [facility] Medical History Normal esophagogastroduodenoscopy (EGD) Surgical History Hx of colonoscopy H/O brain surgery History of cholecystectomy History of back surgery History of arthroplasty of left knee History of surgery History of total right knee replacement Family History Mother Hypertension Hypercholesteremia Substance use disorder Father Hypertension H/O gastroesophageal reflux (GERD) Alzheimer disease Mental health disorder Social History Housing: House Alcohol intake: current Alcohol intake frequency: a few times a week Alcohol type: hard liquor Patient Tobacco Use Status: Never used Tobacco e-Cigarette/Vaping Use: Never Used Second Hand Smoke Exposure: No service: No Current occupational status: employed Current occupational exposures/hazards: No Cognitive needs: No Hearing needs: No Vision needs: Yes Questionnaire PHQ-9 Over the last 2 weeks, how often have you been bothered by any of the following problems? 1. Little interest or pleasure in doing things: not at all 2. Feeling down, depressed, or hopeless: not at all 3. Trouble falling or staying asleep, or sleeping too much: more than half the days 4. Feeling tired or having little energy: not at all 5. Poor appetite or overeating: not at all 6. Feeling bad about yourself - or that you are a failure or have let yourself or your family down: not at all 7. Trouble concentrating on things, such as reading the newspaper or watching television: not at all 8. Moving or speaking so slowly that other people could have noticed. Or the opposite - being so fidgety or restless that you have been moving around a lot more than usual: not at all 9. Thoughts that you would be better off or of hurting yourself in some way: not at all Total score: 2 Depression Screening Interpretation: Negative Depression Screening Done: Yes 70832 - PHQ-9 Billing: Yes Source: Developed by Drs. Shekhar Chung, Marlena Moreno, Kirk Valdes and colleagues, with an educational katie from [employer]. Thrive Questionnaire Date Thrive assessed: 06/09/24 I am a: Patient What is your living situation today?: I have a steady place to live Within the past 12 months, did the food you bought not last and you didn't have the money to get more?: Never true Within the past 12 months, did you worry whether your food would run out before you got money to buy more?: Never true Do you have trouble paying for medicines?: No Do you have trouble getting transportation to medical appointments?: No Do you have trouble paying your heating and electricity bill?: No Do you have trouble taking care of your child, family member or friend?: No Do you have trouble with day-to-day activities such as bathing, preparing meals, shopping, managing finances, etc.?: No Are you currently unemployed and looking for a job?: Yes Are you interested in more education?: No Please select the resources that you would like help with: None Currently or been in a relationship where the following occur: No concerns reported THRIVE Score: 0 AUDIT C Alcohol Use Questionnaire (AUDIT-C) 1. How often do you have a drink containing alcohol?: 2-4 times a month 2. How many drinks containing alcohol do you have on a typical day when you are drinking?: 1 or 2 3. How often do you have six or more drinks on one occasion?: Never Total Score: 2 Score Reviewed/Action Taken: No YONY-7 AMB Questionnaire YONY-7 Date YONY - 7 assessed: 03/03/24 Feeling nervous, anxious, or on edge: 3 = Nearly every day Not being able to stop or control worryin = Nearly every day Worrying too much about different things: 3 = Nearly every day Trouble relaxin = Nearly every day Being so restless that it is hard to sit still: 3 = Nearly every day Becoming easily annoyed or irritable: 3 = Nearly every day Feeling afraid as if something awful might happen: 1 = Several days Total YONY-7 score (0-4 normal; 5-9 mild; 10-14 moderate; 15-21 severe): 19 Source: Developed by Drs. Shekhar Chung, Marlena Moreno, Kirk Valdes and colleagues, with an educational katie from [employer]. YONY-7 Assessment Billing YONY-7 Assessment Tool: YONY-7 Assessment 81250 Review of Systems Const All systems reviewed & are unremarkable except as noted in HPI and below Card Denies chest pain at rest, Denies chest pain with activity, Denies edema, Denies irregular heart rhythm, Denies claudication, Denies dyspnea, Denies dyspnea on exertion, Denies orthopnea, Denies paroxysmal nocturnal dyspnea and Denies slow heart rate Resp Denies cough, Denies dyspnea and Denies dyspnea on exertion GI Denies abdominal pain, Denies change in bowel habits, Denies excessive flatus, Denies nausea and Denies vomiting Neuro Denies lack of coordination Physical exam (Primary Care) Vital Signs: Last Vital Signs BP 124/82 06/15/24 08:31 BMI result Body Mass Index 40.0 BMI Assessment/Plan discussion: High BMI High, discussed plan: lifestyle, weight reduction, dietary and physical activity Tobacco/Smoking Status: Tobacco use Status Tobacco use date assessed 03/03/24 06/15/24 08:43 Patient Tobacco Use Status Never used Tobacco 06/15/24 08:43 e-Cigarette/Vaping Use Never Used 06/15/24 08:43 PHQ-9: PHQ-9 Score PHQ-9: Total score 2 06/15/24 08:43 Depression Screening Interpretation: Negative Thrive Assessment: Date of Thrive Assessment Date Thrive assessed 06/09/24 06/15/24 08:43 Currently or been in a relationship where the following occur: No concerns reported HENMT Head: Yes normal to inspection, Yes normocephalic and Yes atraumatic Ears: external ears normal Eyes General: appearance normal, both eyes and all related structures Eyelids: Yes eyelids normal Conjunctivae: conjunctivae normal Neck Neck: Yes normal visual inspection and Yes supple Resp Effort & Inspection: normal respiratory effort Auscultation: clear to auscultation bilaterally Cardio Jugular venous distension: no JVD Rate: regular rate Rhythm: regular rhythm Heart sounds: S1 normal heart sound present and S2 normal heart sound present GI Inspection: Yes normal to inspection Palpation (GI): Soft to palpation and nontender Auscultation: normal bowel sounds Skin General skin exam: no rashes or lesions noted Neuro General: no focal motor deficits Extrem General: Yes full ROM Psych Appearance: grossly normal Coding Level of Care Code Est Pt Prev Care 40-64y(77990) Diagnoses Physical exam Z00.00 Morbid obesity E66.01 CVA (cerebral vascular accident) I63.9 Additional Codes PHQ-9 - 66370 - PHQ-9 Billing: Yes ([id number]) YONY-7 Assessment Billing - YONY-7 Assessment Tool: YONY-7 Assessment 00545 ([id number]) Time Spent (min) 35 Assessment & Plan Assessment & Plan (1) Physical exam: Code(s): Z00.00 - Encounter for general adult medical examination without abnormal findings Category: Medical (2) Morbid obesity: Code(s): E66.01 - Morbid (severe) obesity due to excess calories Category: Medical (3) CVA (cerebral vascular accident): Comment: 2018 [facility] neurointerventional radiology Code(s): I63.9 - Cerebral infarction, unspecified Category: Medical Plan I will transition escitalopram to 5 mg daily and subsequently introduce bupropion, observing for side effects potentially aiding weight control. Stroke surveillance remains a priority alongside continued administration of cardiovascular protective agents. Weight management is a continued focus through structured dietary regimens and monitored physical activity. I recommend diverting towards non-pharmacologic approaches like cognitive-behavioral therapy due to medication side effects and cognitive concerns. Investigation of sustainable weight loss strategies remains crucial, observing for menopausal and metabolic influences on weight dynamics. Patient was informed and verbally consented to the use of an ambient scribe for clinic note documentation during this visit. I discussed medication adjustments for anxiety and depression, addressing current doses and introducing bupropion for weight management and psychological benefits. I emphasized the importance of diet, reducing carbohydrates, and maintaining stroke preventive measures like statin therapy. I encouraged considering therapy for anxiety due to concerning familial Alzheimer's history while avoiding reliance on long-term benzodiazepine use. I acknowledged her continued weight loss efforts and frustrations with plateaued results, offering alternatives and possible clinical considerations, including more permanent interventions like bariatric surgery should lifestyle adjustments prove insufficient. Regular follow-up evaluations for any emergent cardiovascular or orthopedic concerns were stressed. Orders: Orders Lipid Panel 6 Months E78.5 - Hyperlipidemia, unspecified Comprehensive [place]. Panel Fast 6 Months I10 - Essential (primary) hypertension Medications: New bupropion HCl XL 150 mg PO QAM 90 days 90 tabs 0RF F41.1 - Generalized anxiety disorder Discontinued tirzepatide (weight loss) (Zepbound) for 4 weeks Discontinued Reason: Patient Completed Course 2.5 mg (0.5 mL) subcut QWEEK 4 weeks 2 mL 0RF E66.01 - Morbid (severe) obesity due to excess calories, I10 - Essential (primary) hypertension, I63.9 - Cerebral infarction, unspecified Patient Instructions: - Reduce escitalopram to 5 mg daily for the next month before introducing bupropion. - Continue current cardiovascular medications and follow dietary guidelines provided by [employer]. - Focus on a high protein, low carbohydrate diet to assist with weight management. - Attend scheduled follow-up procedures for previous stroke at [facility]. - Consider initiating cognitive-behavioral therapy to support anxiety management. - Monitor for any side effects from bupropion once started and report concerns. - Maintain regular physical activity like walking to support weight loss. - Keep a record of symptoms related to reflux and notify of any medication side effects. - Follow up through the patient portal or contact if clarification needed for medication or health advice.
[2024-06-15 08:31] VITALS: BP 124/82; BMI 40.0
== END 2024-06-15 09:14 | disposition home or self-care (01) ==
LOC: HO.HMCH 08:26
PROVIDERS: PCP Internal Medicine; Visit Provider Internal Medicine
DX: Z00.00 Encounter for general adult medical examination without abnormal findings (principal); E66.01 Morbid (severe) obesity due to excess calories; I63.9 Cerebral infarction, unspecified; Z68.41 Body mass index [BMI] 40.0-44.9, adult

== ENCOUNTER → 2024-06-15 08:25 | Outpatient (BNVA) | payer OTHER, SELFPAY | PROVIDERS: PCP Internal Medicine; Visit Provider Internal Medicine | DX: Z00.00 Encounter for general adult medical examination without abnormal findings (principal); E66.01 Morbid (severe) obesity due to excess calories; Z68.41 Body mass index [BMI] 40.0-44.9, adult; Z86.73 Personal history of transient ischemic attack (TIA), and cerebral infarction without residual deficits | CPT/HCPCS: 96127 ==

== ENCOUNTER 2024-07-12 08:26 | Outpatient (AMB) | payer OTHER, SELFPAY ==
--- NOTE | 2024-07-12 08:31 | MHC.OFFWIV ---
Intake Vital Signs 07/12/24 08:32 Height 5 ft 6 in Weight 248 lb BMI 40.0 BP 126/80 Blood Pressure Location Rt brachial Position Sitting Pulse 77 Pulse Source Pulse Oximeter Temp 98.1 F Temp Source Oral Pulse Oximetry (%) 98 Oxygen Delivery Method Room Air Intake Visit Reasons: EP-medicine side effect Patient Tobacco Use Status: Never used Tobacco Allergies clarithromycin [From BIAXIN] Allergy (Unknown, Verified 07/12/24 08:33) DIARRHEA oxycodone [From PERCOCET] Allergy (Unknown, Verified 07/12/24 08:33) NAUSEA & VOMITING Sulfa (Sulfonamide Antibiotics) Allergy (Verified 07/12/24 08:33) Unknown cephalexin Adverse Reaction (Severe, Verified 07/12/24 08:33) abdominal discomfort Medication List - Last Reconciled 07/12/24 by Warren Barger MD aspirin 325 mg PO DAILY atorvastatin 40 mg PO DAILY clonazepam 0.5 mg PO BEDTIME 30 days escitalopram oxalate 10 mg PO BEDTIME pantoprazole 40 mg PO BID triamterene-hydrochlorothiazid 37.5-25 mg 1 tab PO QAM 30 days Do you need a note to return to daycare/school/sports/work: Yes HPI EP-medicine side effect HPI Details History - The patient is a 54-year-old female presenting with adverse effects following the initiation of Bupropion (Wellbutrin), prescribed approximately one month ago after seeing Dr. Lockett. - She reports experiencing increased anxiety, frequent episodes of crying, and dark thoughts since starting Wellbutrin. She describes herself as typically not a person who has these symptoms. - Over the past three days, she has noted an increase in crying and heightened anxiety. 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 - The patient expresses fear of developing Alzheimer's disease as there is a family history on both sides. She states concerns about the risk of dementia potentially exacerbated by her medication. - The patient was previously on Lexapro and has recently resumed taking it due to the adverse effects of Wellbutrin. She states that Lexapro seems to be less effective than before. - The patient reports failed communication attempts with her previous healthcare provider, which resulted in seeking care today. Problem List - Generalized Anxiety Disorder - Major Depressive Disorder - Concerns about potential cognitive effects of medication (Lexapro) - Adverse reaction to Bupropion (Wellbutrin) Patient Instructions - Stop taking Bupropion (Wellbutrin) immediately to avoid adverse effects. - Continue taking Lexapro as previously prescribed until the next primary care visit. - Use Clonazepam if experiencing increased anxiety. - Seek urgent care if feeling overwhelmed or if experiencing any harmful thoughts. - Plan to discuss with new primary care physician regarding long-term medication management. Review of Systems - General: No fever no chills - Neurological: No headaches no dizziness - Ear nose throat: No sore throat no hearing difficulty no ear pain - Cardiovascular: No syncope, no chest pain, no palpitations - Gastrointestinal: No nausea vomiting or diarrhea Physical Exam - General: No acute distress - HEENT: No acute findings - Neck: Supple - Respiratory system: Able to talk in full sentences, no audible wheeze - Gastrointestinal: No pain - Extremities: No new findings - CORRECTIONS SPECIALIST: Alert awake oriented x3 - Skin: Normal turgor PFSH Medical History Normal esophagogastroduodenoscopy (EGD) Surgical History Hx of colonoscopy H/O brain surgery History of cholecystectomy History of back surgery History of arthroplasty of left knee History of surgery History of total right knee replacement Family History Mother Hypertension Hypercholesteremia Substance use disorder Father Hypertension H/O gastroesophageal reflux (GERD) Alzheimer disease Mental health disorder Social History Housing: House Alcohol intake: current Alcohol intake frequency: a few times a week Alcohol type: hard liquor Patient Tobacco Use Status: Never used Tobacco e-Cigarette/Vaping Use: Never Used Second Hand Smoke Exposure: No service: No Current occupational status: employed Current occupational exposures/hazards: No Cognitive needs: No Hearing needs: No Vision needs: Yes Physical Exam Vital Signs: Last Vital Signs Temp 98.1 F 07/12/24 08:32 Pulse 77 07/12/24 08:32 BP 126/80 07/12/24 08:32 Pulse Ox 98 07/12/24 08:32 Oxygen Delivery Method Room Air 07/12/24 08:32 BMI result Body Mass Index 40.0 Assessment & Plan Assessment & Plan (1) Medication side effect: Code(s): T88.7XXA - Unspecified adverse effect of drug or medicament, initial encounter (2) Labile mood: Code(s): R45.86 - Emotional lability Plan History - The patient is a 54-year-old female presenting with adverse effects following the initiation of Bupropion (Wellbutrin), prescribed approximately one month ago after seeing Dr. Lockett. - She reports experiencing increased anxiety, frequent episodes of crying, and dark thoughts since starting Wellbutrin. She describes herself as typically not a person who has these symptoms. - Over the past three days, she has noted an increase in crying and heightened anxiety. 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 - The patient expresses fear of developing Alzheimer's disease as there is a family history on both sides. She states concerns about the risk of dementia potentially exacerbated by her medication. - The patient was previously on Lexapro and has recently resumed taking it due to the adverse effects of Wellbutrin. She states that Lexapro seems to be less effective than before. - The patient reports failed communication attempts with her previous healthcare provider, which resulted in seeking care today. Problem List - Generalized Anxiety Disorder - Major Depressive Disorder - Concerns about potential cognitive effects of medication (Lexapro) - Adverse reaction to Bupropion (Wellbutrin) Patient Instructions - Stop taking Bupropion (Wellbutrin) immediately to avoid adverse effects. - Continue taking Lexapro as previously prescribed until the next primary care visit. - Use Clonazepam if experiencing increased anxiety. - Seek urgent care if feeling overwhelmed or if experiencing any harmful thoughts. - Plan to discuss with new primary care physician regarding long-term medication management. Medications: Discontinued bupropion HCl XL Discontinued Reason: Doctor's Order 150 mg PO QAM 90 days 90 tabs 0RF F41.1 - Generalized anxiety disorder Coding Level of Care Code Est Pt Level 3 (88901) Diagnoses Medication side effect T88.7XXA Labile mood R45.86
[2024-07-12 08:32] VITALS: BP 126/80; PULSE 77; TEMP 36.7; O2SAT 98; BMI 40.0
--- OUTSIDE RECORDS SUMMARY | 2024-07-12 08:39 | XMS_ITS | Data Portability ---
Author Organization [place] - [facility] [employer] [place] [facility] [employer] [facility] Address [address] [place] [address] Assessment Encounter Date Assessment Date Assessment LastModified by Organization Details LastModified Time 07/04/2024 07/04/2024 Adjustment disorder with anxiety - The patient reports increased anxiety, over-talking, high-strung feelings, and sleep disturbances after starting Wellbutrin, a medication they began for weight loss and potential alternative to escitalopram. - Advised the patient to take both Wellbutrin and their remaining supply of escitalopram in the morning until they see their new doctor in August. - Emphasized the importance of avoiding abrupt cessation of Wellbutrin to prevent withdrawal symptoms. [email or web address] Not available 07/04/2024 12:22:23 Plan of Treatment Reminders Order Date Submit Date Provider Last Modified By Organization Details Last Modified Time Details Appointments None record ed. Lab None record ed. Referral None record ed. Procedures None record ed. Surgeries None record ed. Imaging None record ed. Medication Orders None record ed. Patient TargetsNo targets recorded. Patient Instructions Encounter Date Encounter Id Patient Instructions Last Modified By Organization Details Last Modified Time 07/04/2024 [id number] Summary of Today 's Visit: During our discussion today, we talked about your current experience with Wellbutrin, which you started three weeks ago as recommended by your primary care provider. You've been experiencing increased anxiety, elevated mood, rapid speech, and an inability to relax, which have started affecting your daily activities and work interactions. Your underlying concern about anxiety management and family history of Alzheimer's led you to switch from escitalopram. Medication Management: It seems that the Wellbutrin might be heightening your anxiety. You mentioned previously having nightmares with Wellbutrin, and it appears some similar effects have resurfaced. You plan to start escitalopram again since you have a sufficient supply at home. You can take this with Wellbutrin in the mornings to help stabilize your symptoms until your appointment in August with your new provider, as sudden discontinuation might cause withdrawal symptoms. Follow-Up Actions: - Restart escitalopram and continue with Wellbutrin each morning as a temporary measure until you see your new provider in August. - Monitor your symptoms closely over the next weeks. If they worsen or you feel the current combination is still not working, reach out for further assistance. - Keep track of any emotional changes, mood swings, or new symptoms and document these for your follow-up consultation to aid in finding a suitable long-term treatment. - Remember, if things don't improve or feel manageable, contact us for more guidance. Remember to seek immediate help if you experience thoughts of self-harm or any other severe mental health concerns. Your mental well-being is a priority, and it? s important to find a treatment regimen that suits your specific needs. [email or web address] Not available 07/04/2024 12:22:25 Reason for Referral None Reported. Problems Name Problem SNOMED Code Status Onset Date Resolution Date Notes Provider Name and Address Organization Details Recorded Time Anxiety 44194085 Active 2024 SONIA Saeed 1 [facility] [address] [place] [address], [address] [place] [address], [place] [facility] 12:09:25 Essential hypertension 54546297 Active 2024 CLYDE SaeedP 1 [facility] [address], [place], [address], [place] [facility] 12:09:41 Gastroesopha geal reflux disease without esophagitis 768930482 Active 2024 CLYDE SaeedP 1 [facility] [address], [place], [address], [place] [facility] 12:09:46 Dyslipidemia 809690069 Active 2024 CLYDE SaeedP 1 [facility] [address] [place] [address], [address], [place] [facility] 12:09:54 Problem Notes None recorded. Medical Equipment None Reported. Allergies Allergen ID Allergen Name Allergen Category Reaction Reaction Severity Criticality Documentation Date Start Date Code Code System Note Provider Name and Address Organization Details Recorded Time 738271 Biaxin medicatio n Not available Not available Not available 07/04/2024 17561 9 RxNorm Not Available [facility] [place] [place] 5 12:02:39 809349 cephalexi n medicatio n Not available Not available Not available 07/04/2024 2231 RxNorm Diamond Galiciawo od, [employer]GER [address], [place], [address], [place] [facility] 5 12:10:06 897041 Substance with sulfonami de structure and antibacte rial mechanism of action (substanc e) medicatio n Not available Not available Not available 07/04/2024 31926 8003 SNOMED Diamond Galiciawo od, RADIATION ONCOLOGY MANAGER [address], [place], [address], [place] [facility] 5 12:10:13 413125 acetamino phen / oxycodone medicatio n Not available Not available Not available 07/04/2024 86781 3 RxNorm Diamond Galiciawo od, RADIATION ONCOLOGY MANAGER [address], [place], [address], [place] [facility] 5 12:10:21 Medications Name Sig Start Date Stop Date Status Note LastModified by Organization Details LastModified Time atorvastatin 40 mg tablet active ADDED BY PATIENT: for stroke Not Available Not Available Not Available aspirin 325 mg tablet active ADDED BY PATIENT: for stroke Not Available Not Available Not Available triamterene 37.5 mg-hydrochloro thiazide 25 mg capsule active ADDED BY PATIENT: slightly high bp Not Available Not Available Not Available pantoprazole 40 mg tablet,delayed release active ADDED BY PATIENT: gerd Not Available Not Available Not Available Wellbutrin XL 150 mg 24 hr tablet, extended release active ADDED BY PATIENT: Not Available Not Available Not Available Vitals None Recorded Social History None recorded. Functional Status None recorded. Mental Status None recorded. Family History Nothing Reported. Medical History No medical history recorded. Gynecological HistoryNo gynecological history recorded. Obstetrics History GPAL:G 0 P 0 0 0 0 Past Encounters Encounter ID Performer Location Encounter Start Date Encounter Closed Date Diagnosis/Indication Diagnosis SNOMED-CT Code Diagnosis ICD10 Code Diagnosis Note [id number] Diamond Galiciawoo d, SONIA [facility] [address] [place] [address] 07/04/2024 12:08:44 07/04/2024 12:27:13 Anxiety 73727953 F41.9 Health Concerns Section Related Observation LastModified by Organization Detai ls LastModified Time None Recorded Concern Status LastModified by Organization Details LastModified Time None Recorded Advance Directives Directive None Recorded Payers Insurance Date Sequence Insurance Name Policy Number Policy Vargas Covered Member ID Vargas Member ID Guarantor Name 07/04/2024 2 *SELF PAY* [id number] Zhanna Benson [id number] Zhanna Hi 07/04/2024 [employer] [id number] Zhanna Benson [id number] Zhanna Hi 07/04/2024 1 [employer] [facility] [id number] Zhanna Benson [id number] Zhanna Hi 01/10/2024 1 *SELF PAY* Chevy Munozn 07/04/2024 1 [employer] [facility] [id number] Zhanna Benson [id number] Zhanna Hi Notes Date Note Type Note Provider Name and Address Organization Details Recorded Time 07/04/2024 text/html Call connected, patient greeted. Patient name, , telephone number, and location verified verbally with the patient. Telemedicine limitations reviewed, answered all questions the patient had about the telehealth interaction, and verbal consent obtained to treat. Clinician attests they are physically located in the following state at the time of visit: [place]. Pt verbally agrees to clinician using AI scribe during visit. CC: Difficulty with Wellbutrin effects HPI: The patient, currently on week three of Wellbutrin initiated for weight loss and anxiety management, reports a significant increase in anxiety symptoms since starting the medication. Previously, the patient was on escitalopram 10 mg but was advised to switch due to concerns about long-term cognitive effects. Upon starting Wellbutrin, they noticed heightened anxiety, an inability to relax, disrupted sleep, rapid speech, and constantly feeling on edge. The patient experienced similar adverse effects with Wellbutrin approximately 12 years ago, including nightmares, which led to discontinuation at that time. These symptoms have disrupted the patient? s work performance, with coworkers commenting on their rapid speech, and have caused an increase in self-consciousness and emotional distress. The patient denies any suicidal ideation but expresses a desire to step away from their current stresses. Although the patient has observed some appetite suppression with Wellbutrin, they are concerned about the exacerbation of anxiety and are considering reverting to escitalopram until a follow-up in August with a new provider. The patient is also concerned about potential withdrawal from switching medications. They have escitalopram available at home but are apprehensive about abrupt changes. The patient denies thoughts or plans of self-harm and emphasizes the need for a doctor who listens to their comprehensive medical history, including a past stroke requiring a stent. Diamond vOalle, SONIA 1 [facility] [address], [place], [address], [facility] 07/04/2024 12:22:28 OBGyn Episode No OBEpisode recorded.
== END 2024-07-12 08:56 | disposition home or self-care (01) ==
PROVIDERS: PCP Internal Medicine; Visit Provider Internal Medicine
DX: T88.7XXA Unspecified adverse effect of drug or medicament, initial encounter (principal); R45.86 Emotional lability

== ENCOUNTER → 2024-07-12 08:26 | Outpatient (BNVA) | payer OTHER, SELFPAY | PROVIDERS: PCP Internal Medicine; Visit Provider Internal Medicine ==

== ENCOUNTER 2024-11-23 09:51 | Emergency (ER) | payer OTHER, SELFPAY ==
--- NOTE | ~2024-11-23 | CT_ITS ---
EXAMINATION: CTA NECK WITH CONTRAST (STROKE) CTA BRAIN WITH CONTRAST (STROKE) CLINICAL INFORMATION: Disorientation. COMPARISON: None available. TECHNIQUE: CTA of the head and neck was performed in the axial plane from the mediastinum to the skull vertex using 70 mL Omnipaque 350 intravenous contrast. Additional reformatted multiplanar images including maximum intensity projection MIP images are generated on the CT workstation. This CT examination was performed using dose optimization techniques as appropriate, variously including the following: *Automated exposure control *Adjustment of mA and/or kV according to patient size (this includes techniques or standardized protocols for targeted exams where dose is matched to indication/reason for exam; i.e. extremities or head) *Use of iterative reconstruction technique. DLP: 1365 mg centimeter. FINDINGS: The degree of stenosis determined by criteria similar to NASCET. Brain: No acute intracranial hemorrhage, mass effect, midline shift, hydrocephalus or herniation. Estrada-white matter differentiation is normal. Posterior cranial fossa contents demonstrated no gross mass effect or acute hemorrhage. Normal position of the cerebellar tonsils. Tympanic cavities and mastoid cells are aerated. No air-fluid levels in the paranasal sinuses. There is a stent in the left middle cranial fossa/sylvian fissure region. Calcified plaques in the petrous cavernous and supracavernous segments both ICAs. Chest CTA: There is normal caliber and enhancement pattern of the included aortic arch. Neck CTA: Right CCA: Normal patency. No focal stenosis. No intimal flap. Right ICA: Normal patency. No focal stenosis. No intimal flap. Tortuosity in the distal segment. Left CCA: Normal patency. No focal stenosis. No intimal flap. Left ICA: Mixed plaque in the proximal segment. Normal patency. No focal stenosis. No intimal flap. V1/V2 segments: Normal patency. No focal stenosis. No intimal flap. The origin is from the subclavian arteries. Left vertebral artery slightly dominant. Brain CTA: Anterior cerebral circulation: ICAs: Normal patency. No focal stenosis. No abrupt cut off. ICA terminus is patent without gross irregularity at either side. MCA's: There is a stent extending from the left M1 to the bifurcation/trifurcation with irregularity and normal patency. No focal stenosis. No abrupt cut off. Bifurcation/trifurcation demonstrated no vascular irregularity. ACAs: Normal patency. No focal stenosis. No abrupt cut off. Ophthalmic arteries are patent without vascular irregularity at the origin. Anterior communicating artery is patent without vascular irregularity. Posterior communicating arteries are patent with a robust caliber on the right side. Posterior cerebral circulation: V3/V4 segments: Normal patency. No focal stenosis. No intimal flap. Posterior inferior cerebral arteries demonstrated a common origin to the right side. Normal patency. No vascular irregularity at the origin. Basilar artery: Normal patency. No focal stenosis. No intimal flap. Superior cerebellar arteries are patent. fashion merchandiser: Normal patency. No focal stenosis. No abrupt cut off. Ancillary findings: Normal enhancement pattern without intraluminal filling defects within the main cerebral venous sinuses with a dominant right side. No gross enhancing mass in the intra-axial or the extra-axial compartment of the cranium. Nonspecific prominent cervical lymph nodes. Cervical spondylosis pronounced at C5-6. CT/CT angio head neck IMPRESSION: No main cerebral artery occlusion or embolus. No gross cerebral aneurysm. No dissection, extracranial arteries. Status post stenting, left MCA. Normal patency. This critical test result is communicated via [employer] to: Emergency physician Dr. Bernarda Renee at 11:38 AM on November 23, 2024. Electronically signed by: Chinmay Noe MD 11/23/2024 11:38 AM EDT
[2024-11-23 09:55] VITALS: BP 128/78; PULSE 80; RESP 18; TEMP 36.6; O2SAT 99; BMI 38.6
--- NOTE | 2024-11-23 10:05 | ECG_ITS ---
Test Reason : DIZZINESS Blood Pressure : */* mmHG Vent. Rate : 74 BPM Atrial Rate : 74 BPM P-R Int : 194 ms QRS Dur : 100 ms QT Int : 402 ms P-R-T Axes : 35 -10 -1 degrees QTcB Int : 446 ms Normal sinus rhythm Low voltage QRS Inferior infarct , age undetermined Cannot rule out Anterior infarct , age undetermined Abnormal ECG When compared with ECG of 23-Apr-2019 14:23, Minimal criteria for Anterior infarct are now Present No significant change was found Referred By: Myrtle Gusman Electronically Signed By: Keon Prado
[2024-11-23 10:30] LABS: MANUAL DIFF FLAG NO
[2024-11-23 10:33] LABS: Hematocrit 39.9 % (37.0-47.0); Hemoglobin 13.8 g/dl (12.0-16.0); Imm Gran Abs Auto 0.03 X10*3/uL (0.00-0.03); Imm Gran Pct Auto 0.4 % (0.0-0.4); Lymphocytes Absolute Auto 1.7 X10*3/uL (1.2-4.9); Mean Corpuscular HGB Conc 34.6 g/dl (31.0-35.0); Mean Corpuscular Hemoglobin 30.2 pg (27.0-33.0); Mean Corpuscular Volume 87.3 fL (80.0-98.0); NRBC Abs Auto 0.000 X10*3/uL (0.0-0.012); NRBC Pct Auto 0.0 /100WBC (0.0-0.2); Platelet Count 233 X10*3/uL (160-400); Red Blood Count 4.57 X10*6/uL (4.20-5.50); White Blood Count 6.8 X10*3/uL (4.8-10.8)
--- NOTE | 2024-11-23 10:42 | ED.GENADULT ---
HPI - General Adult General Chief complaint: Dizziness Stated complaint: Disoriented, dry mouth Time Seen by Provider: 11/23/24 10:19 Source: patient Mode of arrival: ambulatory Limitations: no limitations History of Present Illness ED Provider: DR. Renee HPI narrative: 54-year-old female walked into the emergency department for evaluation of feeling lightheadedness, disorientation, hard to focus, difficulty performing her regular job and difficulty typing. Otherwise no weakness, no numbness, no slurred speech, patient admit to having 5 mg of edible marijuana last night, otherwise declined using any drugs. No head injury. Patient is wegovy for weight loss Related Data Home Medications ?Medication ?Instructions ?Recorded ?Confirmed aspirin 325 mg tablet 325 mg PO DAILY 06/15/23 07/12/24 atorvastatin 40 mg tablet 40 mg PO DAILY 06/15/23 07/12/24 escitalopram oxalate 10 mg tablet 10 mg PO BEDTIME 06/15/23 07/12/24 pantoprazole 40 mg tablet,delayed 40 mg PO BID 06/15/23 07/12/24 release Previous Rx's ?Medication ?Instructions ?Recorded triamterene 37.5 1 tab PO QAM 30 days #30 tabs 03/03/24 mg-hydrochlorothiazide 25 mg tablet clonazepam 0.5 mg tablet 0.5 mg PO BEDTIME 30 days #30 tabs 05/09/24 Allergies Allergy/AdvReac Type Severity Reaction Status Date / Time clarithromycin (From BIAXIN) Allergy Unknown DIARRHEA Verified 11/23/24 09:56 oxycodone (From PERCOCET) Allergy Unknown NAUSEA & Verified 11/23/24 09:56 VOMITING Sulfa (Sulfonamide Allergy Unknown Verified 11/23/24 09:56 Antibiotics) cephalexin AdvReac Severe abdominal Verified 11/23/24 09:56 discomfort Review of Systems Review of Systems: All other systems are reviewed and are negative Constitutional: Reports as per HPI and Reports no additional constitutional complaints Eyes: Reports as per HPI and Reports no additional eye complaints Reports system reviewed and no additional complaints, except as documented Cardiovascular: Reports as per HPI and Reports no additional cardiovascular complaints Respiratory: Reports as per HPI and Reports no additional respiratory complaints Gastrointestinal: Reports as per HPI and Reports no additional gastrointestinal complaints Genitourinary: Reports no additional female genitourinary complaints Musculoskeletal: Reports no additional musculoskeletal complaints Skin/Breast: Reports system reviewed and no additional complaints, except as docu Psychiatric: Reports no additional psychiatric complaints Endocrine: Reports no additional endocrine complaints Hematologic/Lymphatic: Reports no additional hematologic/lymphatic complaints Allergic/Immunologic: Reports no additional allergic/immunologic complaints Reports system reviewed and no additional complaints, except as documented and Reports Abnormal speech present [facility] Past Medical History Medical History Normal esophagogastroduodenoscopy (EGD) Surgical History Hx of colonoscopy H/O brain surgery History of cholecystectomy History of back surgery History of arthroplasty of left knee History of surgery History of total right knee replacement Family History Family History Mother Hypertension Hypercholesteremia Substance use disorder Father Hypertension H/O gastroesophageal reflux (GERD) Alzheimer disease Mental health disorder Social History Social History Housing: House Alcohol intake: current Alcohol intake frequency: a few times a month Alcohol type: hard liquor Patient Tobacco Use Status: Never used Tobacco e-Cigarette/Vaping Use: Never Used Second Hand Smoke Exposure: No Use of substances other than those prescribed or required for medical reasons: Yes Substance Use Type: Marijuana Substance Use Type Other:: gummies for sleep Advance Directives: No Advance Directives Information Provided: Yes Do you have a plan to hurt others: No Plan service: No Current occupational status: employed Current occupational exposures/hazards: No Cognitive needs: No Hearing needs: No Vision needs: Yes Physical Exam ED Vital Signs: Vital Signs - 24 hr 11/23/24 09:55 Temperature 97.9 F Pulse Rate 80 Respiratory Rate 18 Blood Pressure 128/78 Pulse Oximetry 99 Oxygen Delivery Method Room Air BMI result Body Mass Index 38.6 Vital signs have been reviewed and appear to be correct. Blood pressure elevated. Heart rate normal. Respiratory rate normal. Temperature normal. Oxygen saturation normal. Appearance: Alert. Oriented X3. No acute distress. Head: Normal external exam. Normocephalic. Atraumatic. No Donnelly signs noted. No raccoon eyes noted Eyes: PERRLA. EOMI. Conjunctiva and sclera normal. Eyelids normal. ENT: TM's Normal. Pharynx normal. Uvula midline. Moist mucous membranes. No trismus noted. No drooling noted. No muffled voice noted. Neck: Normal inspection. Neck supple. FROM. No adenopathy. Thyroid Normal. No meningeal signs. No neck mass noted. CVS: Normal heart rate and rhythm. Heart sound normal. No murmurs noted. Pulses normal throughout. Respiratory: No respiratory distress. Painless inspiration. Breath sounds normal. No wheezes/rales/rhonchi noted. Chest nontender. No accessory muscle usage noted or decreased air movement noted. Abdomen: Soft and nontender. Bowel sounds normal in all 4 quadrants. No distention noted. No organomegaly noted. No visible injury noted. Back: No CVA tenderness. Full range of motion noted. Skin: Skin warm and dry. Normal skin color. Normal skin turgor. No rashes/lesions/lacerations noted. Extremities: No lower extremity edema. Extremities exhibit normal range of motion. Extremities nontender. Neuro: Mental status: Normal attention, orientation, memory, and affect. Cranial nerves: Pupils are equal, round and reactive to light, EOMI, visual dumont are fall, face is symmetric, facial sensations are normal. Motor examination normal muscle tone, strength to 4 extremities. DTR are +2, planter's are flexor. Sensory exam; normal coordination, no ataxia, gait stable. Cerebellar exam: Mllosl-cn-[id number] and wvep-yw-[id number] is normal. Extrapyramidal system: No tremors, no rigidity with normal facial expressions. Pronator drift not present NIH Stroke Scale Time: 10:47 Level of Consciousness: Alert Level of Consciousness Questions: Answers both questions correctly Level of Consciousness Commands: Performs both tasks correctly Best Gaze: Normal Visual: No visual loss Facial Palsy: Normal Motor Arm (Right): No drift Motor Arm (Left): No drift Motor Leg (Right): No drift Motor Leg (Left): No drift Limb Ataxia: Absent Sensory: Normal Best Language: No aphasia Dysarthia: Normal Extinction and Inattention: No abnormality Score: 0 Course Reevaluation(s) Reevaluation #1: Feels disoriented since this morning, patient came back from recent vacation, patient has no headache, no neurological deficit, patient received at least 3 separate neuro exam all within normal without neurological deficit, head CT is unremarkable, CTA head and neck showed no significant intracerebral vessels narrowing or occlusion. There is no metabolic abnormality on the blood workup today. Patient is taking Wegovy for weight loss no indication at this point of dehydration. Patient was instructed to continue hydration and follow-up with PCP patient is aware that she will need to seek immediate medical attention if symptoms getting worse. Time: 14:18 Medications Administered Discontinued Medications Generic Name Dose Route Start Last Admin Trade Name Freq PRN Reason Stop Dose Admin Lactated Ringer's 1,000 mls @ 999 mls/hr 11/23/24 11:45 11/23/24 11:39 Lr IV 11/23/24 12:45 999 mls/hr .Q1H1M PARVEEN Administration Iohexol 100 ml 11/23/24 11:22 11/23/24 11:23 Iohexol 350 Mg/Ml 100 Ml Infus..Btl IV 11/23/24 11:23 70 ml ONCE ONE Administration Medical Decision Making Differential Diagnosis Differential Diagnoses: The differential diagnosis associated with the presentation includes (Hemorrhagic stroke, ischemic stroke, dehydration, electrolyte derangement, severe anemia, UTI.) Admission/Observation Consideration of admission/observation: Escalation of care including admission/observation considered Lab Data MDM Lab Attestation statement: I reviewed the patient's lab results. 11/23/24 10:25 11/23/24 10:25 Labs: Lab Results 11/23/24 11/23/24 Range/Units 10:25 13:44 WBC 6.8 (4.8-10.8) X10*3/uL RBC 4.57 (4.20-5.50) X10*6/uL Hgb 13.8 (12.0-16.0) g/dl Hct 39.9 (37.0-47.0) % MCV 87.3 (80.0-98.0) fL MCH 30.2 (27.0-33.0) pg MCHC 34.6 (31.0-35.0) g/dl RDW 15.5 (11.0-16.0) % Plt Count 233 (160-400) X10*3/uL MPV 10.0 (9.4-12.3) fL Immature Gran % (Auto) 0.4 (0.0-0.4) % Neut % (Auto) 64.4 (45-73) % Lymph % (Auto) 25.2 (20-40) % Sargent % (Auto) 7.5 (2-11) % Eos % (Auto) 1.9 (0-4) % Baso % (Auto) 0.6 (0-2) % Lymph # (Auto) 1.7 (1.2-4.9) X10*3/uL Sargent # (Auto) 0.5 (0.1-1.2) X10*3/uL Eos # (Auto) 0.1 (0.0-0.4) X10*3/uL Baso # (Auto) 0.0 (0.0-0.2) X10*3/uL Abs Immat Gran (auto) 0.03 (0.00-0.03) X10*3/uL Absolute Neuts (auto) 4.4 (2.0-8.3) x10*3/uL Absolute Nucleated RBC 0.000 (0.0-0.012) X10*3/uL Nucleated RBC % (auto) 0.0 (0.0-0.2) /100WBC Sodium 143 (135-145) mmol/L Potassium 3.4 (3.3-5.1) mmol/L Chloride 109 H (96-108) mmol/L Carbon Dioxide 28 (22-29) mmol/L Anion Gap 9 L (12-20) BUN 16 (9-16) mg/dL Creatinine 1.03 (0.5-1.4) mg/dL Estim Creat Clear Calc 76.9 Estimated GFR 56 Random Glucose 82 (60-115) mg/dL Calcium 9.1 (8.4-10.2) mg/dL Magnesium 2.1 (1.6-2.6) mg/dL Total Bilirubin 0.8 (0.0-1.0) mg/dL Direct Bilirubin 0.3 (0.0-0.5) mg/dL AST 28 (5-31) U/L ALT 23 (0-31) U/L Alkaline Phosphatase 70 (39-117) U/L Troponin I High Sens < 2.7 (<3.5-17.0) ng/L Total Protein 5.9 L (6.5-8.0) g/dL Albumin 3.8 (3.5-5.0) g/dL Urine Color Yellow Urine Appearance Clear Urine pH 7.5 (5.0-9.0) Ur Specific Olar 1.025 (1.005-1.025) Urine Protein Negative (Neg-Trace) mg/dL Urine Glucose (UA) Negative (Negative) mg/dL Urine Ketones Negative (Negative) mg/dL Urine Blood Negative (Negative) Urine Nitrite Negative (Negative) Ur Leukocyte Esterase Negative (Negative) Urine RBC 0-2 (0-2) /HPF Urine WBC 0-5 (0-5) /HPF Ur Squamous Epith Cells 3-5 (0-2) /HPF Urine Bacteria None Seen (None Seen) Hyaline Casts 0-2 (0-2) /LPF Independent Interpretation I performed an independent interpretation of an: CT Scan (CT head/CTA head and neck: No acute stroke, no acute vessel occlusion.) Radiology Impression Discussion of test interpretation with radiology: I have reviewed the radiologist's reading. Discharge Plan Discharge Clinical Impression: Disorientation, unspecified Patient Disposition: Home, Self-Care Instructions: Acute Delirium (ED) Prescriptions: No Action clonazepam 0.5 mg tablet 0.5 mg PO BEDTIME 30 Days Qty: 30 0RF pantoprazole 40 mg tablet,delayed release (DR/EC) 40 mg PO BID escitalopram oxalate 10 mg tablet 10 mg PO BEDTIME aspirin 325 mg tablet 325 mg PO DAILY atorvastatin 40 mg tablet 40 mg PO DAILY triamterene-hydrochlorothiazid 37.5-25 mg tablet 1 tab PO QAM 30 Days Qty: 30 1RF Referrals: Sidra Rendon PA [Primary Care Provider, Primary Care] Print Language: Tajik
[2024-11-23 10:45] LABS: Alanine Aminotransferase 23 U/L (0-31); Albumin Level 3.8 g/dL (3.5-5.0); Alkaline Phosphatase 70 U/L (39-117); Anion Gap 9 (12-20); Aspartate Amino Transferase 28 U/L (5-31); Blood Urea Nitrogen 16 mg/dL (9-16); Calcium 9.1 mg/dL (8.4-10.2); Carbon Dioxide 28 mmol/L (22-29); Chloride 109 mmol/L (96-108); Creatinine Clr Calc Pharmacy 76.9; Estimated Glomerular Filt Rate 56; Magnesium 2.1 mg/dL (1.6-2.6); Potassium 3.4 mmol/L (3.3-5.1); Sodium 143 mmol/L (135-145); Total Protein 5.9 g/dL (6.5-8.0)
[2024-11-23 10:52] LABS: Troponin-I High Sensitivity < 2.7 ng/L (<3.5-17.0)
[2024-11-23] MEDS: iohexoL 350 MG/ML 100 ML INFUS..BTL IV (11:23)
[2024-11-23] MEDS: Lactated Ringers 1,000 ML 999 ML IV (11:39)
[2024-11-23 14:02] LABS: Appearance Urine Clear; Glucose Urine UA Negative (Negative); PH 7.5 (5.0-9.0); Specific Gravity - Urine 1.025 (1.005-1.025)
[2024-11-23 15:06] VITALS: BP 122/76; PULSE 79; RESP 17; TEMP 36.6; O2SAT 99
== END 2024-11-23 15:06 | disposition home or self-care (01) ==
PROVIDERS: Physician Assistant Medical; Emergency Provider Emergency Medicine; PCP Physician Assistant
DX: R42 Dizziness and giddiness (principal); R68.2 Dry mouth, unspecified; Z79.899 Other long term (current) drug therapy
CPT/HCPCS: 36415; 70496; 70498; 80048; 80076; 81001; 83735; 84484; 85025; 93005; 96360; 99285; J7120; Q9967

== ENCOUNTER → 2024-11-23 10:05 | Outpatient (BNV) | payer OTHER, SELFPAY | PROVIDERS: Emergency Provider Emergency Medicine; PCP Physician Assistant; Visit Provider Internal Medicine Cardiovascular Disease | DX: R94.31 Abnormal electrocardiogram [ECG] [EKG] (principal); R42 Dizziness and giddiness | CPT/HCPCS: 93010 ==

== ENCOUNTER → 2024-11-23 10:28 | Outpatient (BNV) | payer OTHER, SELFPAY | PROVIDERS: Emergency Provider Emergency Medicine; PCP Physician Assistant; Visit Provider Radiology Diagnostic Radiology | DX: R41.0 Disorientation, unspecified (principal); R42 Dizziness and giddiness | CPT/HCPCS: 70496; 70498 ==